=== PATIENT | female | born 1995 | race Caucasian/White ===

== ENCOUNTER → 2018-02-12 | Outpatient (CLI) | payer BC, OTHER ==
[2018-02-12 20:41] LABS: Basophils % (A) 0 %; Eosinophils # (A) 0.1 k/uL (0-0.7); Eosinophils % (A) 2 %; HCT 40.4 % (34.0-46.0); HGB 13.4 gm/dL (11.4-16.0); Lymphocytes # (A) 2.8 k/uL (1.0-4.8); Lymphocytes % (A) 40 %; MCH 31.7 pg (25.0-35.0); MCHC 33.2 g/dL (31.0-37.0); MCV 95.3 fL (80.0-100.0); Mean Platelet Volume 7.8; Monocytes # (A) 0.4 k/uL (0-1.0); Monocytes % (A) 5 %; Neutrophils # (A) 3.6 k/uL (1.3-7.7); Neutrophils % (A) 51 %; Platelet Count 309 k/uL (150-450); RBC 4.24 m/uL (3.80-5.40); RDW 12.1 % (11.5-15.5)
[2018-02-12 20:43] LABS: ALT 19 U/L (9-52); AST 19 U/L (14-36); Albumin 3.9 g/dL (3.5-5.0); Alkaline Phosphatase 116 U/L (38-126); Anion Gap 13 mmol/L; Blood Urea Nitrogen 14 mg/dL (7-17); Calcium 9.5 mg/dL (8.4-10.2); Carbon Dioxide 24 mmol/L (22-30); Chloride 106 mmol/L (98-107); Cholesterol 104 mg/dL (<200); Glucose 100 mg/dL (74-99); HDL Cholesterol 36 mg/dL (40-60); LDL Cholesterol,Calculated 55 mg/dL (0-99); Potassium 4.1 mmol/L (3.5-5.1); Sodium 143 mmol/L (137-145); Total Bilirubin 0.3 mg/dL (0.2-1.3); Total Protein 6.7 g/dL (6.3-8.2); Triglycerides 64 mg/dL (<150)
[2018-02-12 21:00] LABS: T4, Free (Free Thyroxine) 1.03 ng/dL (0.78-2.19)
== END | disposition home or self-care (01) ==
LOC: MMGSC 12:15
PROVIDERS: ATTEND Family Medicine
DX: Z00.00 Encounter for general adult medical examination without abnormal findings (principal)
CPT/HCPCS: 36415; 80053; 80061; 84439; 84443; 85025

== ENCOUNTER → 2018-06-08 | Outpatient (CLI) | payer BC, OTHER ==
--- NOTE | 2018-06-08 13:26 | XR ---
Thoracic spine HISTORY: Upper back pain 2 views of the thoracic spine on 4 images There is a minimal S-shaped thoracic scoliosis. Surgical clips are present in the right. No evident p araspinal mass. Multilevel spondylosis is present at the lower thoracic spine. Disc spaces are mainta ined. Rudimentary cervical ribs noted. IMPRESSION: Mild spinal curvature, thoracic spondylosis.
== END ==
LOC: RADXRMAIN 09:48
PROVIDERS: ATTEND Family Medicine
DX: M47.814 Spondylosis without myelopathy or radiculopathy, thoracic region (principal); M43.9 Deforming dorsopathy, unspecified
CPT/HCPCS: 72072

== ENCOUNTER 2018-06-28 09:05 | Day surgery (SDC) | payer BC, OTHER ==
[2018-06-24 11:50] VITALS: BMI 25.7
[~2018-06-28 09:05] MED LIST: LACTATED RINGERS 1,000 ML IV SCH; LIDOCAINE 1% 20 ML VIAL (10MG/ML) FOR IV START INTRADERMA PRN
[2018-06-28 09:50] VITALS: RESP 16; TEMP 99.3
[2018-06-28] MEDS ORDERED: PROPOFOL 10 MG/ML 20 ML VIAL IV ONE (10:08)
--- NOTE | 2018-06-28 10:38 | P.PCN ---
Date of Procedure: 06/28/18 Procedure(s) Performed: Procedure: Colonoscopy and biopsy. Preoperative diagnosis: Diarrhea and intermittent rectal bleeding. Postoperative diagnosis: 1. Exam within the colon and terminal ileum within normal limits. 2. Biopsies obtained from the terminal ileum and randomly from the colon. Preparation: HalfLytely prep. Sedation: Was provided by anesthesia. Brief clinical history: The patient is a 22-year-old female who was evaluated in the office last month regarding chronic diarrhea. She reported 4-5 loose stools daily with urgent bowel movements. There is occasional bleeding per rectum. There was question of family history of Crohn's disease in her father. Her diarrhea has been going on all her life and she cannot think of any dietary triggers or other associated symptoms or extraintestinal manifestations of inflammatory bowel disease. This would be her first colonoscopy. Procedure: With the patient on her left lateral decubitus position and after informed consent and adequate sedation, the perianal area was inspected and it did not show any fissures or fistulas. There were no masses felt on digital rectal examination. The Olympus CFQ 160L video colonoscope was then inserted in the rectum in the usual fashion and advanced to the cecum. I intubated the ileocecal valve and examined the terminal ileum. Terminal ileum and colon appeared healthy with no edema, erythema, friability, ulceration, exudation or spontaneous bleeding. No polyps or tumors were seen or any obvious diverticular disease. I obtained biopsies from the terminal ileum and randomly from the colon then I retroflexed the endoscope in the rectum before the endoscope was withdrawn. No definite internal hemorrhoids or bleeding was noted. The patient tolerated the procedure well. Plan: The patient was reassured. Will await biopsy results and make further plans based on her course, biopsy results and her response to a trial with Bentyl. We will keep you updated on her progress.
[2018-06-28 10:51] VITALS: BP 94/52; PULSE 60
== END 2018-06-28 11:08 | disposition home or self-care (01) ==
LOC: ORWHC2ENDO 09:05
DX: K62.5 Hemorrhage of anus and rectum (principal); K52.9 Noninfective gastroenteritis and colitis, unspecified; J45.909 Unspecified asthma, uncomplicated; K21.9 Gastro-esophageal reflux disease without esophagitis; F17.210 Nicotine dependence, cigarettes, uncomplicated; F32.9 Major depressive disorder, single episode, unspecified; Z79.51 Long term (current) use of inhaled steroids; Z79.899 Other long term (current) drug therapy; Z88.0 Allergy status to penicillin; Z88.8 Allergy status to other drugs, medicaments and biological substances
CPT/HCPCS: 81025; 88305; 45380; J2704

== ENCOUNTER 2019-09-07 15:37 | Emergency (ER) | payer BC, OTHER ==
[2019-09-07 15:42] VITALS: RESP 16
[2019-09-07] MEDS ORDERED: methylPREDNISolone SOD SUCCI 125 MG/2 ML VIAL IM ONE (15:54)
[2019-09-07] MEDS ORDERED: FAMOTIDINE 20 MG TAB PO STA (15:54)
[2019-09-07] MEDS ORDERED: hydrOXYzine HCL 25 MG TAB PO STA (15:55)
--- NOTE | 2019-09-07 16:05 | ED ---
Skin/Abscess/FB HPI - General Chief complaint: Skin/Abscess/Foreign Body Stated complaint: Rash all over body Time Seen by Provider: 09/07/19 15:43 Source: patient, RN notes reviewed Mode of arrival: ambulatory Limitations: no limitations - History of Present Illness Initial comments: 23-year-old female presents emergency from chief complaint rash. Patient states started last 24 hours was seen at [facility] was given steroids yesterday seemed to help but returned today. She is on oral steroids at home. Patient states that she has no difficulty breathing noted with swallowing. Patient states she has vague hives that when she wraps up in a blanket he gets worse. States when she unwrapped it better. Patient states that she's had no other new states things. She did admit that she moved into a new place few weeks ago. - Related Data Home Medications Medication Instructions Recorded Confirmed Abilify(Unknown Dose) 1 tab PO DAILY 06/24/18 06/28/18 Celexa(Unknown Dose) 1 tab PO DAILY 06/24/18 06/28/18 Dicyclomine(Unknown Dose) 1 tab PO DAILY 06/24/18 06/28/18 Etonogestrel [Nexplanon] 1 implant SQ [id number] 06/24/18 06/28/18 Fluticasone/Salmeterol [Advair 1 inhalation PO BID 06/24/18 06/28/18 250-50 Diskus] Loratadine [Claritin] 10 mg PO DAILY 06/24/18 06/28/18 Valtrex(Unknown Dose) 1 tab PO DAILY 06/24/18 06/28/18 Previous Rx's Medication Instructions Recorded Famotidine [Pepcid] 20 mg PO BID #28 tablet 09/07/19 Permethrin 5% Cream [Elimite] 1 applic TOPICAL ONCE #60 gram 09/07/19 hydrOXYzine HCL [Atarax] 25 mg PO TID PRN #15 tab 09/07/19 Allergies Allergy/AdvReac Type Severity Reaction Status Date / Time amoxicillin [From Augmentin] Allergy lips Verified 06/24/18 11:00 swelled clavulanic acid Allergy lips Verified 06/24/18 11:00 [From Augmentin] swelled metronidazole [From Flagyl] Allergy Rash/Hives Verified 09/07/19 15:41 levalbuterol [From Xopenex] AdvReac all over Verified 06/24/18 11:00 redness Review of Systems ROS Statement: Those systems with pertinent positive or pertinent negative responses have been documented in the HPI. ROS Other: All systems not noted in ROS Statement are negative. Past Medical History Past Medical History: Asthma, GERD/Reflux Additional Past Medical History / Comment(s): hx. low BP, frequent loose stools, gas, bloating, abd. pain, recent bronchitis History of Any Multi-Drug Resistant Organisms: C-DIFF Date of last positivie culture/infection: 2013 Past Surgical History: Section, Cholecystectomy Additional Past Surgical History / Comment(s): EGD Past Anesthesia/Blood Transfusion Reactions: Previous Problems w/ Anesthesia Additional Past Anesthesia/Blood Transfusion Reaction / Comment(s): had IV sedation in past & said could feel & hear everything Past Psychological History: Anxiety, Bipolar Smoking Status: Current every day smoker Past Alcohol Use History: Occasional Past Drug Use History: Marijuana - Past Family History Mother Family Medical History: No Reported History General Exam Limitations: no limitations General appearance: alert, in no apparent distress Head exam: Present: atraumatic, normocephalic, normal inspection Eye exam: Present: normal appearance, PERRL, EOMI. Absent: scleral icterus, conjunctival injection, periorbital swelling ENT exam: Present: normal exam, normal oropharynx, mucous membranes moist Neck exam: Present: normal inspection, full ROM. Absent: tenderness, meningismus, lymphadenopathy Respiratory exam: Present: normal lung sounds bilaterally. Absent: respiratory distress, wheezes, rales, rhonchi, stridor Cardiovascular Exam: Present: regular rate, normal rhythm, normal heart sounds. Absent: systolic murmur, diastolic murmur, rubs, gallop, clicks GI/Abdominal exam: Present: soft, normal bowel sounds. Absent: distended, tenderness, guarding, rebound, rigid Neurological exam: Present: alert, oriented X3, CN II-XII intact Skin exam: Present: rash (Has some large areas of urticaria noted with also fine macules papule rash. There are expiration) Course Vital Signs 09/07/19 15:38 Temperature 99.0 F Pulse Rate 94 Respiratory 16 Rate Blood Pressure 112/71 O2 Sat by Pulse 100 Oximetry Medical Decision Making - Medical Decision Making Patient presented for rash which appears to be 2 separate rashes or urticaria noted also some fine papular rash with excoriations there is concern for un derlying scabies . Patient be treated for ALLERGIC reaction and scabies. Disposition Clinical Impression: Dermatitis, Urticaria Disposition: HOME SELF-CARE Condition: Stable Instructions (If sedation given, give patient instructions): Dermatitis (ED) Additional Instructions: Please return to the Emergency Department if symptoms worsen or any other concerns. Prescriptions: hydrOXYzine HCL [Atarax] 25 mg PO TID PRN #15 tab PRN Reason: itching Permethrin 5% Cream [Elimite] 1 applic TOPICAL ONCE #60 gram Famotidine [Pepcid] 20 mg PO BID #28 tablet Is patient prescribed a controlled substance at d/c from ED?: No Referrals: Mary Jo Krishnamurthy MD [Primary Care Provider] - 1-2 days Time of Disposition: 16:04
[2019-09-07 16:26] VITALS: BP 130/70; PULSE 79; TEMP 97.8
== END 2019-09-07 16:24 | disposition home or self-care (01) ==
LOC: EC 15:37
DX: L30.9 Dermatitis, unspecified (principal); L50.9 Urticaria, unspecified; F41.9 Anxiety disorder, unspecified; F31.9 Bipolar disorder, unspecified; F17.200 Nicotine dependence, unspecified, uncomplicated; Z79.3 Long term (current) use of hormonal contraceptives; Z79.899 Other long term (current) drug therapy; Z88.1 Allergy status to other antibiotic agents; Z88.8 Allergy status to other drugs, medicaments and biological substances
CPT/HCPCS: 96372; 99282; J2930